=== PATIENT | female | born 1990 | race Caucasian/White ===

== ENCOUNTER 2025-02-08 10:09 | Emergency (ER) | payer MEDICAID ==
[~2025-02-08] VITALS: Ht 165.1 cm; Wt 106.4 kg
--- NOTE | 2025-02-08 10:15 | ELECTROCARDIOGRAPH REPORT ---
[facility] Test Date: 2025-02-08 Test Time: 10:13:36 Pat Name: ROMEO WILLINGHAM Department: EMERGENCY ROOM Room: Gender: F Records Analyst: VERONICA : 1990 Requested By: KARLA MICHAEL Order Number: [id number] Reading MD: Measurements Intervals Tanner Rate: 95 P: 50 VA: 159 QRS: 32 QRSD: 83 T: 12 QT: 343 QTc: 431 Interpretive Statements Sinus tachycardia with irregular rate Probable left atrial enlargement Please click the below link to view image of tracing.
[2025-02-08 10:37] LABS: MEAN PLATELET VOLUME 7.3 FL (7.4-10.4); RED CELL DISTRIBUTION WIDTH 13.8 % (11.5-14.5)
--- NOTE | 2025-02-08 10:42 | Physician Documentation ---
History of Present Illness ~ Chief Complaint: Chest Pain Stated Complaint: HIGH BLOOD PRESSURE CP Time Seen by MD: 11:55 HPI This is a 34-year-old female who presents from her primary care provider with concern for chest pain and hypertension, patient reports that she presented to her primary care provider's office due to chest pain that she believes to be related to recent cough, per note from primary care office she was found to have an elevated blood pressure and directed to the emergency department. She tells me that over the past several days she has had a viral upper respiratory type infection with congestion in her chest. She did feel short of breath but this got better with a breathing treatment or primary clinic. She does report having some pain and discomfort in her chest, but thinks it is related to coughing, denies any current chest pain. She reports a history of high blood pressure but is not on blood pressure medicine. She otherwise denies any concerns at this time. Medication Reconciliation Allergies: Coded Allergies: No Known Allergies (Unverified , 02/08/25) Review of Systems ROS As stated above in the HPI, otherwise all systems are reviewed and negative. Constitutional: Denies: fever Cardiovascular: Reports: chest pain Physical Exam Vital Signs: Temperature: 98.7, Source: Oral, Heart Rate: 110, Respiratory Rate: 16, BP: 197/155, Pulse Oximetry: 99, Weight: 106.400 Oxygen Flow Rate: 0 Physical Exam General: This is a pleasant and well-appearing young woman sitting calmly in bed HEENT: Atraumatic, oropharynx is moist Heart: Regular rate and rhythm, normal-appearing peripheral perfusion Lungs: normal work of breathing, normal oxygen saturation on room air Extremities: Warm and well-perfused, no edema Neuro: Alert and oriented Psychiatric: Calm and cooperative with exam Progress Results/Orders Results/Orders Orders - KARLA MICHAEL MD Chest,Single View (02/08/25 10:12) Monitor (02/08/25 10:12) Saline Lock (02/08/25 10:12) Oxygen (02/08/25 10:12) Hs Troponin I W Calculations (02/08/25 12:12) Hs Troponin I W Calculations (02/08/25 13:12) Completed Orders - KARLA MICHAEL MD Chest,Single View (02/08/25 10:12) Cbc/Diff (02/08/25 10:12) BMP (02/08/25 10:12) PBNP (02/08/25 10:12) Electrocardiogram (02/08/25 10:12) Hs Troponin I W Calculations (02/08/25 10:12) Vital Signs 02/08/25 10:13 Temp 98.7 Pulse 110 Resp 16 B/P (MAP) 197/155 Pulse Ox 99 O2 Flow Rate 0 Laboratory Tests Test 02/08/25 10:18 White Blood Count 11.2 H Red Blood Count 5.61 H Hemoglobin 15.3 Hematocrit 45.2 H Mean Corpuscular Volume 80.6 Mean Corpuscular Hemoglobin 27.2 Mean Corpuscular Hemoglobin Concent 33.8 Red Cell Distribution Width 13.8 Platelet Count 359 Mean Platelet Volume 7.3 L Neutrophils (%) (Auto) 75.9 H Lymphocytes (%) (Auto) 13.6 L Monocytes (%) (Auto) 4.3 Eosinophils (%) (Auto) 5.4 Basophils (%) (Auto) 0.8 Neutrophils # (Auto) 8.5 H Lymphocytes # (Auto) 1.5 Monocytes # (Auto) 0.5 Eosinophils # (Auto) 0.6 Basophils # (Auto) 0.1 CBC Comment Sodium Level 137 Potassium Level 3.3 L Chloride Level 102 Carbon Dioxide Level 26.5 Anion Gap 9 Blood Urea Nitrogen 11 Creatinine 0.83 Estimated GFR/1.73 m2 80 BUN/Creatinine Ratio 13.3 Glucose Level 124 H Calcium Level 9.3 Troponin I High Sensitivity 7 Pro-B-Type Natriuretic Peptide 68 Albumin 3.8 Chemistry Comments EKG/XRAY/CT/US/VASC/MRI EKG : Additional Comment I personally interpreted the EKG and this shows: Sinus tachycardic, rate 95, QTC 431, no STEMI or ischemic changes Chest X-Ray : Additional Comments I personally interpreted the x-ray, and it shows: No focal consolidation, pulmonary edema, or mediastinal widening Medical Decision Making Findings MSE performed in triage and patient returned to ED lobby by nursing staff to await available ED room Differential Dx:Considerations: Include: chest wall pain, CHF, costochondritis, myocardial infarction, pleuritis, pneumothorax, pulmonary embolus Additional Information The patient presents with elevated blood pressure and reported chest pain. Per her history it appears she has a viral upper respiratory infection with a cough. Chest x-ray with no pneumonia. EKG without ischemic changes. Labs unremarkable including kidney function and negative troponin. She does have high blood pressure but states that she has a history of this and is going to be evaluated in 1 week to discuss starting medications. She otherwise has no acute concerns. I do not feel that any further workup or testing is indicated. She has no evidence of hypertensive emergency. She was not interested in starting blood pressure medication today. She will be discharged with outpatient follow up. Departure Time of Disposition: 12:04 Disposition: 01 HOME / SELF CARE / HOMELESS Impression: Primary Impression: Chest pain Additional Impression: Viral URI with cough Condition: Stable Discharge Instructions: Hypertension, Adult, Nonspecific Chest Pain, Adult Referrals: NO PRIMARY CARE PROVIDER (PCP) Education Educated: Patient Educated regarding: diagnosis, treatment, need for follow up Signature Scribe Signature: na Attestation: JESUS Dexter Feb 08, 2025 10:42 KARLA MICHAEL MD Feb 08, 2025 12:04
--- NOTE | 2025-02-08 10:49 | RADIOLOGY REPORT ---
CHEST RADIOGRAPH Indication: CP Technique: Single frontal view of the chest was obtained Comparison: None FINDINGS: Lines and Tubes: None Lungs: No focal consolidation. Pleura: No effusion. No pneumothorax. Cardiomediastinal contours: Unremarkable Bones: No acute osseous abnormality. IMPRESSION: No acute cardiopulmonary disease.
[2025-02-08 11:58] LABS: CREATININE 0.83 MG/DL (0.40-0.90); PRO BRAIN NATRIURETIC PEPTIDE 68 PG/ML (0-125); TOTAL CARBON DIOXIDE 26.5 MMOL/L (24-32); eCRCL 88 ML/MIN; eGFR 80 ML/MIN
[2025-02-08 12:15] VITALS: BP 151/110; PULSE 76; RESP 18; TEMP 98.7; O2SAT 98
== END 2025-02-08 12:19 | disposition home or self-care (01) ==
LOC: ER 10:11
DX: J06.9 Acute upper respiratory infection, unspecified (principal); R07.89 Other chest pain; B97.89 Other viral agents as the cause of diseases classified elsewhere; R06.02 Shortness of breath
CPT/HCPCS: 36415; 71045; 80048; 83880; 84484; 85025; 93005; 99285